=== PATIENT | male | born 1960 | race African-American/Black ===

== ENCOUNTER 2017-12-22 11:30 | Inpatient (IN) | payer MEDICAID ==
--- NOTE | 2017-12-22 11:51 | EDPHY ---
H & P Stated Complaint: CP, CARLIN, leg pain ongoing since stents places last week - Medical/Surgical History Hx Asthma: No Hx Chronic Respiratory Disease: No Hx Diabetes: No Hx Cardiac Disease: No Hx Renal Disease: No Hx Cirrhosis: No Hx Alcoholism: No Hx HIV/AIDS: No Hx Splenectomy or Spleen Trauma: No Other PMH: HTN. Tobacco. ETOH. Homeless. stents - Social History Smoking Status: Current every day smoker Time Seen by Provider: 12/22/17 11:38 HPI/ROS: CHIEF COMPLAINT: Chest pain HISTORY OF PRESENT ILLNESS: [57-year-old homeless male currently living at the correction was admitted to [facility] on December 14 for complaints of chest pain with subsequent 80% stenosis of RCA and LAD post stenting, returns to the ER from the correction the ambulance complaining of return of chest pain for the past 2 days. States that he has otherwise been feeling well post discharge however the past 2 days he is only able to ambulate 3-5 minutes before stopping for pain including on flat surfaces. No back pain. No syncope or near syncope. No nausea. PRIMARY CARE PROVIDER: REVIEW OF SYSTEMS: A ten point review of systems was performed and is negative with the exception of the items mentioned in the HPI PAST MEDICAL & SURGICAL HISTORY: Recent cardiac stenting. SOCIAL HISTORY: Intermittent cigarette use. Homeless living at the correction PHYSICAL EXAM (Prior to examination, patient consented to physical exam, hands were washed and my usual and customary physical exam procedures followed) 1) GENERAL: [Well-developed, well-nourished, alert and oriented. Appears nontoxic answering questions per 2) HEAD: Normocephalic, atraumatic 3) HEENT: Pupils equal, round, reactive to light bilaterally. Sclera anicteric. 4) NECK: Full range of motion, no meningeal signs. 5) LUNGS: Clear auscultation bilaterally, no wheezes, no rhonchi, no retractions. 6) HEART: Regular rate and rhythm, no murmur, no heave, no gallop. 7) ABDOMEN: No guarding, no rebound, no focal tenderness, negative McBurney's, negative Reyes's, negative Rovsing's, negative peritoneal sign, 8) MUSCULOSKELETAL: Inguinal region examined, no signs of infection, no tenderness, no signs of pseudoaneurysm. Moving all extremities, no focal areas of tenderness, no obvious trauma. No peripheral edema or discoloration. 9) BACK: No CVA tenderness, no midline vertebral tenderness, no fluctuance, no step-off, no obvious trauma, no visual or palpable abnormality. 10) SKIN: No rash, no petechiae. 11) Psychiatric: Patient is oriented X 3, there is no agitation. DIFFERENTIAL DIAGNOSIS: In no particular order, including but not limited to myocardial ischemia, pulmonary embolus, chest wall pain, pleural inflammation and pulmonary infectious causes. (Gilmer Groe) Constitutional: Initial Vital Signs Temperature (C) 36.7 C 12/22/17 11:30 Heart Rate 61 12/22/17 11:30 Respiratory Rate 17 12/22/17 11:30 Blood Pressure 113/73 12/22/17 11:30 O2 Sat (%) 100 12/22/17 11:30 O2 Delivery Mode Room Air Allergies/Adverse Reactions: No Known Allergies Allergy (Verified 12/22/17 11:36) Home Medications: Medication Instructions Recorded Aspirin EC [Aspirin EC 325 mg (*)] 325 mg PO DAILY #30 tab 12/16/17 Atorvastatin Calcium [Lipitor 40 80 mg PO DAILY #60 tab 12/16/17 mg (*)] Carvedilol [Coreg (*)] 3.125 mg PO BIDMEAL #60 tab 12/16/17 Clopidogrel Bisulfate [Plavix (*)] 75 mg PO DAILY #30 tab 12/16/17 Lisinopril [Zestril 2.5 mg (*)] 2.5 mg PO DAILY #30 tab 12/16/17 Medical Decision Making - Diagnostics EKG Interpretation: EKG: Complete interpretation has been separately recorded in the [facility] archive. Summary impression: Sinus rhythm, rate 59 (Wallace Limon) Imaging Results: Imaging Impressions Chest X-Ray 12/22/17 11:49 Impression: 1. Suggest mild chronic bronchitis/airways disease. 2. Atherosclerotic thoracic aorta. 3. No definite pneumonia, pleural effusion, or pneumothorax. Images reviewed myself (Gilmer Gore) ED Course/Re-evaluation: Old medical records have been reviewed on this patient case discussed with Dr. Limon in the ER. Patient has elevated troponin of 0.21, no current complaints of chest pain but does note intermittent chest pain for the past 24 hr after and asymptomatic. Post discharge from the hospital. Will consult with Cardiology. 12:45 p.m.: Consultation with hospitalist CESIA Bartlett, recommended readmission to hospitalist service and Cardiology will consult. (Gilmer Gore) Other Provider: PHYSICIAN DOCUMENTATION: The patient was evaluated and managed by the Physician Forest Science Professor. My co- signature indicates that I have reviewed this chart and I agree with the findings and plan of care as documented. I am the secondary supervising physician. (Wallace Limon) - Data Points Laboratory Results: Laboratory Results 12/22/17 11:48 12/22/17 12:00 12/22/17 12/22/17 12/22/17 12:35 12:00 11:59 WBC RBC Hgb Hct MCV MCH MCHC RDW Plt Count MPV Neut % (Auto) Lymph % (Auto) [place] % (Auto) Eos % (Auto) Baso % (Auto) Nucleat RBC Rel Count Absolute Neuts (auto) Absolute Lymphs (auto) Absolute Monos (auto) Absolute Eos (auto) Absolute Basos (auto) Absolute Nucleated RBC Immature Gran % Immature Gran # PT 12.9 SEC SEC (12.0-15.0) INR 0.95 (0.83-1.16) APTT 21.3 SEC L SEC (23.0-38.0) Sodium 137 mEq/L mEq/L (135-145) Potassium 4.5 mEq/L mEq/L (3.3-5.0) Chloride 110 mEq/L mEq/L (97-110) Carbon Dioxide 20 mEq/l L mEq/l (22-31) Anion Gap 7 mEq/L L mEq/L (8-16) BUN 20 mg/dL mg/dL (7-23) Creatinine 0.8 mg/dL mg/dL (0.7-1.3) Estimated GFR > 60 Glucose 96 mg/dL mg/dL (70-100) Calcium 9.3 mg/dL mg/dL (8.5-10.4) POC Troponin I 0.21 ng/mL H ng/mL (0.00-0.08) 12/22/17 12/22/17 12/22/17 11:48 11:48 11:48 WBC 6.54 10^3/uL 10^3/uL (3.80-9.50) RBC 3.91 10^6/uL L 10^6/uL (4.40-6.38) Hgb 11.7 g/dL L g/dL (13.7-17.5) Hct 35.9 % L % (40.0-51.0) MCV 91.8 fL fL (81.5-99.8) MCH 29.9 pg pg (27.9-34.1) MCHC 32.6 g/dL g/dL (32.4-36.7) RDW 15.8 % H % (11.5-15.2) Plt Count 290 10^3/uL 10^3/uL (150-400) MPV 10.2 fL fL (8.7-11.7) Neut % (Auto) 75.4 % H % (39.3-74.2) Lymph % (Auto) 14.7 % L % (15.0-45.0) [place] % (Auto) 7.6 % % (4.5-13.0) Eos % (Auto) 2.0 % % (0.6-7.6) Baso % (Auto) 0.0 % L % (0.3-1.7) Nucleat RBC Rel Count 0.0 % % (0.0-0.2) Absolute Neuts (auto) 4.93 10^3/uL 10^3/uL (1.70-6.50) Absolute Lymphs (auto) 0.96 10^3/uL L 10^3/uL (1.00-3.00) Absolute Monos (auto) 0.50 10^3/uL 10^3/uL (0.30-0.80) Absolute Eos (auto) 0.13 10^3/uL 10^3/uL (0.03-0.40) Absolute Basos (auto) 0.00 10^3/uL L 10^3/uL (0.02-0.10) Absolute Nucleated RBC 0.00 10^3/uL 10^3/uL (0-0.01) Immature Gran % 0.3 % % (0.0-1.1) Immature Gran # 0.02 10^3/uL 10^3/uL (0.00-0.10) PT REJ INR REJ APTT REJ Sodium REJ Potassium REJ Chloride REJ Carbon Dioxide REJ Anion Gap REJ BUN REJ Creatinine REJ Estimated GFR REJ Glucose REJ Calcium REJ POC Troponin I Point of Care Test Results: Chemistry 12/22/17 11:59 POC Troponin I 0.21 ng/mL H ng/mL (0.00-0.08) Departure - Departure Disposition: [facility] Inpatient Acute Clinical Impression: Chest pain, Elevated troponin I level Condition: Fair
--- NOTE | 2017-12-22 11:57 | CPEKG ---
Heart Rate: 58 RR Interval: 1034 P-R Interval: 152 QRSD Interval: 98 QT Interval: 436 QTC Interval: 429 P [place]: 0 QRS [place]: 45 T Wave [place]: 81 EKG Severity - ABNORMAL ECG - EKG Impression: SINUS RHYTHM EKG Impression: PROBABLE LEFT VENTRICULAR HYPERTROPHY EKG Impression: ANTERIOR Q WAVES, POSSIBLY DUE TO LVH Electronically Signed By: Wallace Limon 22-Dec-2017 12:49:22
[2017-12-22 12:06] LABS: PLATELET COUNT 290 10^3/uL (150-400)
[2017-12-22 12:49] LABS: INR 0.95 (0.83-1.16); PROTIME(PATIENT) 12.9 SEC (12.0-15.0)
[2017-12-22] MEDS ORDERED: ONDANSETRON DISINTEGRATING 4 MG TAB PO PRN (14:30)
[2017-12-22] MEDS ORDERED: ACETAMINOPHEN 325 MG TAB PO PRN (14:30)
[2017-12-22] MEDS ORDERED: oxyCODONE IR 5 MG TAB PO PRN (14:30)
[2017-12-22] MEDS ORDERED: ONDANSETRON 4 MG/2 ML VIAL IVP PRN (14:30)
[2017-12-22] MEDS ORDERED: NICOTINE POLACRILEX 2 MG GUM B PRN (14:53)
--- NOTE | 2017-12-22 15:20 | GHP ---
[f rep st] HISTORY AND PHYSICAL DATE OF ADMISSION: 12/22/2017 CHIEF COMPLAINT: Shortness of breath. HISTORY OF PRESENT ILLNESS: This is a 57 year-old man who had a recent myocardial infarction with stents placed in his LAD, as well as RCA. At that time, his ejection fraction was noted to be 40% to 45%. He was discharged 6 days prior to his presentation today. He states compliance with his medication and seems to know the number and frequency of the medications that he is taking , although he does not know them by name. He has been homeless and staying at the nursing home. He has had significant dyspnea on exertion since then. Prior to having his OK, he was able to walk 5 miles without a problem. Now he needs to stop after about 5 or 10 minutes of walking. He stops because he gets so short of breath. He is having occasional chest pain. He is unable to further describe the quality of this. This does not seem to be exertional, it does not last very long. He has been continuing to smoke. He notes no lower extremity edema. PAST MEDICAL/SURGICAL HISTORY: 1. Coronary artery disease, status post PCI to the LAD and the RCA in the last week. 2. Hyperlipidemia. 3. Ongoing tobacco use. 4. Hypertension. 5. Homelessness. MEDICATIONS: Please see medication reconciliation. ALLERGIES: No known drug allergies. SOCIAL HISTORY: He is homeless. He has lived in [place] about a month. Prior to that, he lived in [place], [place]. He drinks about once a week. FAMILY HISTORY: No coronary artery disease. REVIEW OF SYSTEMS: A 10-point review of systems is conducted and is negative except per HPI. PHYSICAL EXAM: VITAL SIGNS: Blood pressure 130/67, heart rate 58, respiration rate 12, saturating 99% on room air, temperature is 37.2. GENERAL: Mr. Monge is a pleasant man who is resting comfortably, in no acute distress. HEENT: Normocephalic, atraumatic. CARDIOVASCULAR: Borderline bradycardic. There are no murmurs, rubs, or gallops. PULMONARY: Lungs clear to auscultation bilaterally. ABDOMEN: Soft, nontender, nondistended. SKIN: No rash. : No Calderón. NEUROLOGIC: Alert and oriented x3. He is moving all extremities. PSYCHIATRIC: Normal mood and affect. LABS: Hemoglobin is 11.7. INR 0.9. Bicarb is 20. Troponin 0.21. DATA: 1. Discussed this with Nicole Bartlett PA-C. Cardiology will consult. 2. I personally viewed and interpreted his chest x-ray. This shows mild hyperexpansion with thoracic aortic calcification. 3. I personally viewed and interpreted his EKGs. Previous EKG showed somewhat ischemic-looking T-waves in V1 through V4. Current EKG shows biphasic T-waves in the same leads. IMPRESSION AND PLAN: 1. Ongoing dyspnea on exertion/chest pain in a patient who just recently had a percutaneous coronary intervention: Echocardiogram has been performed, read is pending. Cardiology will consult. He has been taking appropriate cardiac medications. We will make him n.p.o. 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 2. Cardiomyopathy, ischemic: Repeat echocardiogram is pending. He is on Coreg and lisinopril. He is euvolemic. 3. Tobacco use: Cessation strongly encouraged. I will give him Nicorette gum while he is here. /[id number]/MODL MTDD
--- NOTE | 2017-12-22 15:37 | ECHO ---
[email or web address] [address] [address] Main: [phone] Fax: Transthoracic Echocardiogram Name: MATT DYER MR#: [id number] Study Date: 12/22/2017 Study Time: 02:22 PM Date of : 1960 Age: 57 year(s) Height: 185.4 cm (73 in.) Weight: 81.65 kg (180 lb.) BSA: 2.06 m2 Gender: Male Examination: Limited Echo Indication: Chest Pain, r/o wma Image Quality: Adequate Contrast: Requested by: Nicole Bartlett BP: 130 mmHg/67 mmHg Heart Rate: Rhythm: Indication: Chest Pain, r/o wma Procedure Staff Forest Technician: Swati Rouse [facility] Reading Physician: Chip Crawford MD Requesting Provider: Conclusions: Dilated left ventricle. The ejection fraction is visually estimated to be 25 %. Reduced LV function. Global hypokinesis. No previous Measurements: Chambers Valvular Assessment AV/MV Valvular Assessment TV/PV Normal Normal Normal Name Value Range Name Value Range Name Value Range LVEF (BP): 30 % (>=55 %) Visual EF: 25 % Continued Measurements: Findings: Left Ventricle: Dilated left ventricle. The ejection fraction is visually estimated to be 25 %. Reduced LV function. Global hypokinesis. (No Signature Object) Patient: MATT DYER Study Date: 12/22/2017 Page 1 of 1 02:22 PM [id number]
--- NOTE | 2017-12-22 16:40 | GCON ---
[f rep st] CONSULTATION CARDIOLOGY CONSULTATION HISTORY OF PRESENT ILLNESS: The patient is a 57-year-old male with a past medical history that was l imited to only hypertension who presented last week with an acute coronary syndrome. He was found to have severe obstructive lesions in his LAD and RCA that were treated with PTCA and stenting. The pr ocedural note mentions that his LAD lesion was heavily calcified and was very difficult to cross. In the procedure, he had a very difficult PCI of his mid LAD complicated by a diagonal closure. He was admitted 12/14, and discharged on 12/16. He reports that he has not had chest pains post-PCI. He h as not missed any of his medications, including dual anti-platelet therapy, carvedilol, lisinopril, a torvastatin. Since his discharge, he has been having very significant dyspnea on exertion. He will have to stop every few feet to catch his breath. He denies any peripheral edema, palpitation, PND, o rthopnea, or presyncope, syncope. He also describes a chest pain, which is milder than his previous, but he still reports it of a 6 to 8/10. This is associated with exertion. PAST MEDICAL HISTORY: 1. CAD, status post PTCA and stenting to LAD and RCA. 2. Dyslipidemia. 3. Ongoing tobacco abuse. 4. Hypertension. 5. Homelessness. MEDICATIONS: Please see medication reconciliation. ALLERGIES: No known drug allergies. SOCIAL HISTORY: He recently moved here from [place]. He continued to smoke and he drinks about once a week. He is currently homeless. FAMILY HISTORY: Positive for mother with CAD at an age younger than 65. REVIEW OF SYSTEMS: As per HPI. A complete 10-point review of systems was obtained and is negative, except for what is dictated in HPI. PHYSICAL EXAMINATION: VITAL SIGNS: BP of 130/67, heart rate 58, respirations 12, O2 saturation 99% on room air, temp of 99 degrees Fahrenheit. GENERAL: He is a very pleasant male in no apparent dist ress. HEENT: Normocephalic, atraumatic. Eyes are without scleral icterus. Mucous membranes moist. HEART: Regular rate and rhythm. LUNGS: Mildly diminished in the bases. ABDOMEN: Soft with norm oactive bowel sounds. SKIN: Warm and dry. NEURO: No focal deficits detected. PSYCHIATRIC: Nayeli l mood and affect for given situation. : With no Calderón present in urethra. DIAGNOSTIC DATA: Chest x-ray images reviewed. This shows a mild chronic bronchitis airway disease. No definite pleural effusion. There is atherosclerosis involving his thoracic aorta. 12/22/2017, echocardiogram reviewed shows EF is reduced at 25% with global hypokinesis. A 12-lead ECG personally interpreted demonstrates sinus rhythm with LVH and anterior Q-waves with T-w ave inversions and mild ST elevation, fairly similar to previous ECG. I discussed patient's care with Dr. Baldwin. Chart notes reviewed and summarized. IMPRESSION/PLAN: The patient is a 57-year-old male admitted with ongoing dyspnea and chest pain. He did have a complicated percutaneous intervention procedure. 1. Ongoing dyspnea and chest pain. We will plan to cycle his cardiac enzymes and consider repeat ca rdiac catheterization. 2. Ischemic cardiomyopathy. His symptoms of dyspnea are likely related to his ischemic cardiomyopat hy and he has functional class III symptoms currently. We will plan to try to optimize his medical m anagement in this admission. Currently, he appears euvolemic. 3. Hypertension. Blood pressures could be improved given his low ejection fraction on this current echo. 4. Ongoing tobacco abuse. Patient counseled on cessation. 5. More recommendations will follow further testing. /[id number]/MODL
[2017-12-22] MEDS: CARVEDILOL 3.125 MG TAB PO SCH (18:29)
[2017-12-23] MEDS: CARVEDILOL 3.125 MG TAB PO SCH (08:47)
[2017-12-23] MEDS: ATORVASTATIN CALCIUM 40 MG TAB PO SCH (09:21)
[2017-12-23] MEDS: LISINOPRIL 2.5 MG TAB PO SCH (09:21)
[2017-12-23] MEDS: CLOPIDOGREL BISULFATE 75 MG TAB PO SCH (09:21)
[2017-12-23] MEDS: ASPIRIN EC 325 MG TAB PO SCH (09:22)
--- NOTE | 2017-12-23 11:11 | PDCARPN ---
Cardiology Progress Note Chief Complaint: Dyspnea/ chest pain/recent ACS Assessment/Plan: Assessment: This is a 57 y/o male seen for consultation today for continued dyspnea and chest pains, with a history of uncontrolled hypertension, and ACS for which he underwent PCI last week with stenting of the LAD and RCA. During the procedure stenting of the LAD was difficult to cross due to calcifications, and was complicated with a diagonal closure. Stenting of the RCA was uncomplicated. Plan: #. Ongoing dyspnea and chest pains- Troponins low and not suggestive of repeat event NpBNP reassuringly low and no pulmonary edema or pleural effusions on CXR will try to uptitrate medical management will begin spironolactone 25 mg to optimize medical management #. CAD: cp improved and trops low (likely residually elevated from recent ACS) will defer repeat cath at this time #. Ischemic cardiomyopathy- symptoms of dyspnea likely related with NYHA FC III symptoms Will attempt to optimize medical therapy at this time with spironolactone 25mg will d/c carvedilol and switch to metoprolol given his shortness of breath and headaches. Currently euvolemic #. Hypertension- BP today is 124/71. Continue lisinopril 2.5 mg and metoprolol 25mg #. Homelessness: will ask case management to help with resources #. Dispo: keep inpt for further med titration/optimization 12/23/17 12:11 Subjective: Patient is a 57 y/o male being seen for consultation today for shortness of breath and dyspnea. He has a history of untreated hypertension, as well as an episode of acute coronary syndrome last week for which he underwent PCI and was found to have severe obstruction in his LAD and RCA which required PTCA and stenting. LAD was heavily calcified and difficult to cross and was complicated by a diagonal closure. RCA stenting was uncomplicated. He was admitted on 12/14 and discharged on 12/16. He reports taking all of his medications since discharge to include carvedilol, lisinopril, atorvastatin, aspirin, and Plavix.Today he continues to complain of shortness of breath and dyspnea that is worsened with any physical activity to include walking only a few steps. He denies any PND, orthopnea, dizziness/lightheadedness, palpitations, or lower extremity edema. He does report some non-specific chest pains which he states are milder than his previous chest pains last week, as well as headaches over the past several days. He has no additional questions or concerns today. Reviewed/Discussed With: hospitalist (Dr. Fernando) Objective: Vital Signs (8 Hrs) Temp Pulse Resp BP Pulse Ox 12/23/17 07:51 97.4 F 65 16 124/71 H 93 12/23/17 05:26 97.8 F 57 L 12 123/75 H 99 Intake/Output (24 Hrs) 12/22/17 12/23/17 12/24/17 05:59 05:59 05:59 Intake Total 350 Balance 350 Intake: Oral (ml) 350 Other: Weight 82 kg Intake Quantity Yes Sufficient Result Diagrams: 12/22/17 11:48 12/23/17 03:50 Cardiac Labs: Cardiac Lab Results (72 Hrs) 12/23/17 12/22/17 12/22/17 03:50 18:25 15:30 Troponin I 0.167 H 0.189 H 0.218 H Laboratory Tests 12/22/17 15:30 NT-Pro-B Natriuret Pep 277 H EKG: personally interpreted SR with LVH and Twi infusion ant lat with biphasic Tw Telemetry: Personally reviewed. Sinus rhythm with some artifacts. Echocardiogram: Echocardiogram performed on 12/22/17 showed: EF visually estimated at 25%, dilated left ventricle, reduced LV function, global hypokinesis. - Physical Exam Constitutional: WDWN, no apparent distress Eyes: anicteric sclera Ears, Nose, Mouth, Throat: moist mucous membranes Cardiovascular: regular rate and rhythm, no murmurs, no rubs, no gallops, pulses symmetric bilat Peripheral Pulses: 2+: dorsalis-pedis (R), dorsalis-pedis (L) Respiratory: clear to auscultate bilat, no crackles, no wheezes Gastrointestinal: normoactive bowel sounds, no tenderness Genitourinary: No gillis in urethra Skin: no rashes, no abrasions, warm Neurologic: AAOx3 Psychiatric: cooperative, interactive, following commands, not anxious ICD10 Worksheet Patient Problems: Problems Problem Status Onset Chest pain Acute Elevated troponin I level Acute ACS (acute coronary syndrome) Acute Abnormal EKG Acute
[2017-12-23] MEDS: SPIRONOLACTONE 25 MG TAB PO SCH (11:30)
[2017-12-23] MEDS: METOPROLOL SUCCINATE XR 25 MG TAB PO SCH (11:30)
--- NOTE | 2017-12-23 12:02 | ASMTCASEMG ---
Living Arrangements What is your living Answers: Alone arrangement? Who do you live with? Type Of Residence What kind of residence do Answers: Homeless you live in? Discharge Plan Comments Coordination Status Comments Notes: Pts case discussed in tx rounds. Pt is a 57 y/o man admitted for chest pain. Pt was recently here at [facility] for a similiar presentation. [place] [facility] Referral sent to [facility]. CM can reserve [place] [facility] [place] for pt once medically stable. CM to follow. Plan[place] [facility] [place] Date Signed: 12/23/2017 12:01 PM Electronically Signed By:OLIMPIA Busby
--- NOTE | 2017-12-23 12:15 | CPEKG ---
Heart Rate: 60 RR Interval: 1000 P-R Interval: 148 QRSD Interval: 92 QT Interval: 448 QTC Interval: 448 P [place]: -1 QRS [place]: 47 T Wave [place]: 79 EKG Severity - ABNORMAL ECG - EKG Impression: SINUS RHYTHM EKG Impression: PROBABLE LEFT VENTRICULAR HYPERTROPHY EKG Impression: ANTERIOR ST ABNORMALITIES,CONSIDER RECENT MO Electronically Signed By: Markel Tipton 23-Dec-2017 12:58:40
--- NOTE | 2017-12-23 16:55 | HOSPPROG ---
Hospitalist Progress Note Assessment/Plan: Chest pain in 57 yo male with recent PCI / stent - Trop trending down, likely elevated from recent ACS event. Cardiology consulted, no plans for repeat angiogram. CP free today. Ischemic cardiomyopathy - BNP normal. EF 25% with hypokinesis. Spironolactone added per cards. Coreg changed to Toprol. Will monitor another night with medication changes. Hypertension - controlled. Cont current regimen. Homelessness - CM involved Dispo - change to inpt for ongoing medical management of cardiomyopathy Subjective: Pt feels better. Denies CP or SOB today. Tolerating med changes thus far. Objective: Vital Signs Temp Pulse Resp BP Pulse Ox 36.6 C 60 16 119/59 L 99 12/23/17 11:56 12/23/17 11:56 12/23/17 11:56 12/23/17 11:56 12/23/17 11:56 Laboratory Results 12/23/17 03:50 12/22/17 12/23/17 12/24/17 05:59 05:59 05:59 Intake Total 350 480 Balance 350 480 PT 12.9 SEC (12.0-15.0) 12/22/17 12:35 INR 0.95 (0.83-1.16) 12/22/17 12:35 - Physical Exam Constitutional: no apparent distress Eyes: PERRL Ears, Nose, Mouth, Throat: moist mucous membranes Cardiovascular: regular rate and rhythym Respiratory: no respiratory distress Gastrointestinal: normoactive bowel sounds, soft, non-tender abdomen Skin: warm Musculoskeletal: full muscle strength Neurologic: AAOx3 Psychiatric: interacting appropriately ICD10 Worksheet Patient Problems: Problems Problem Status Onset Chest pain Acute Elevated troponin I level Acute ACS (acute coronary syndrome) Acute Abnormal EKG Acute
[2017-12-24 08:30] VITALS: BP 114/54
--- NOTE | 2017-12-24 08:31 | PDMN ---
Medical Necessity Medical necessity: Change to IP, as of 12/23/17, per MD; los >2 mn for ongoing management of ischemic cardiomyopathy; requiring further cardiac monitoring & med management; hx recent PCI/stent, HTN, homelessness
[2017-12-24] MEDS: ATORVASTATIN CALCIUM 40 MG TAB PO SCH (08:38)
[2017-12-24] MEDS: METOPROLOL SUCCINATE XR 25 MG TAB PO SCH (08:38)
[2017-12-24] MEDS: ASPIRIN EC 325 MG TAB PO SCH (08:38)
[2017-12-24] MEDS: LISINOPRIL 2.5 MG TAB PO SCH (08:38)
[2017-12-24] MEDS: CLOPIDOGREL BISULFATE 75 MG TAB PO SCH (08:38)
[2017-12-24] MEDS: SPIRONOLACTONE 25 MG TAB PO SCH (08:39)
--- NOTE | 2017-12-24 09:23 | ASMTLACE ---
LACE Length of stay for Answers: 1 day current admission Acuity / Level of Answers: Yes Care: Did the patient have an inpatient admission? Comorbidities - select Answers: Coronary Artery Disease all that apply Previous myocardial infarction Other Notes: HTN; HLD # of Emergency department Answers: 1-2 visits in the last 6 months Social determinants Answers: History of substance abuse (ETOH, street drugs, prescription drugs, etc.) Homelessness (street, fci) Score: 15 Date Signed: 12/24/2017 09:23 AM Electronically Signed By:OLIMPIA Busby
--- NOTE | 2017-12-24 09:35 | ASMTDCNOTE ---
Case Management Discharge Discharge Order Complete? Answers: Yes Patient to Obtain Answers: Independently Medications Transportation Arranged Answers: Bus Tokens EMTALA Complete Answers: No Case Management Transport Answers: No Form Complete Faxed Final Orders Answers: No Agency/Facility Transfer Answers: No Report Printed & Faxed to Receiving Agency Family Notified Answers: No Discharge Comments Notes: CM spoke to Dr. Fernando and Riky RN regarding d/c POC. Pt is being discharged today. CM made a reservation at the skilled nursing for pt. CM provided pt w/ a bus pass. No other needs at this time. CM available for changes. Plan: Independent Date Signed: 12/24/2017 09:35 AM Electronically Signed By:OLIMPIA Busby
--- NOTE | 2017-12-24 12:41 | PDCARPN ---
Cardiology Progress Note Chief Complaint: ICM/CHF/CAD Assessment/Plan: Assessment: This is a 57 y/o male seen for consultation today for continued dyspnea and chest pains, with a history of uncontrolled hypertension, and ACS for which he underwent PCI last week with stenting of the LAD and RCA. During the procedure, stenting of the LAD was difficult to cross due to calcifications, and was complicated with a diagonal closure. Stenting of the RCA was uncomplicated. Plan: #. Ongoing dyspnea and chest pains- Troponins low and not suggestive of repeat event NpBNP reassuringly low and no pulmonary edema or pleural effusions on CXR will continue present medical management continue spironolactone 25 mg to optimize medical management #. CAD: cp improved and trops low (likely residually elevated from recent ACS) will defer repeat cath at this time #. Ischemic cardiomyopathy- symptoms of dyspnea likely related with NYHA FC III symptoms Will attempt to optimize medical therapy at this time with spironolactone 25mg D/c'd carvedilol and switched to metoprolol given his shortness of breath and headaches. Currently euvolemic #. Hypertension- BP today is 124/71. Continue lisinopril 2.5 mg and metoprolol 25mg #. Homelessness: will ask case management to help with resources #. Dispo: ok to discharge from cardiac perspective. 12/24/17 12:39 Subjective: Less short of breath and no dyspnea. Reviewed/Discussed With: hospitalist (Dr. Fernando) Objective: Vital Signs (8 Hrs) Temp Pulse Resp BP Pulse Ox 12/24/17 08:29 98.6 F 64 15 114/54 L 99 Intake/Output (24 Hrs) 12/23/17 12/24/17 12/25/17 05:59 05:59 05:59 Intake Total 1000 Balance 1000 Intake: Oral (ml) 1000 Other: Number of Voids Toilet 3 Result Diagrams: 12/22/17 11:48 12/23/17 03:50 Telemetry: reviewed/ SR - Physical Exam Constitutional: no apparent distress Ears, Nose, Mouth, Throat: moist mucous membranes Cardiovascular: regular rate and rhythm Respiratory: clear to auscultate bilat Skin: no rashes, no abrasions Neurologic: AAOx3 Psychiatric: cooperative, interactive ICD10 Worksheet Patient Problems: Problems Problem Status Onset ACS (acute coronary syndrome) Acute Abnormal EKG Acute Chest pain Acute Elevated troponin I level Acute
--- NOTE | 2017-12-24 21:36 | GDS ---
[f rep st] DISCHARGE SUMMARY DISCHARGE DIAGNOSES: 1. Chest pain, resolved. 2. Ischemic cardiomyopathy, ejection fraction 25%. 3. Coronary artery disease with recent acute coronary syndrome, status post percutaneous coronary in tervention and stenting of the left anterior descending and right coronary artery 1 week prior to adm ission. 4. Hypertension. 5. Homelessness. CONSULTANTS: CESIA Hernandez, Cardiology. HISTORY: For details please see history and physical dated December 22, 2017. The patient is a 57-year- old male, who was recently hospitalized with acute coronary syndrome and underwent stents to his LAD and RCA, presents to the emergency department with chest pain and shortness of breath. His troponin was elevated at 0.21. This was down from 1.74 the week prior to admission during his acute coronary syndrome. His EKG on admission showed biphasic T-waves in his anterior leads. His troponin continue d to trend down during his hospitalization. He was started on spironolactone for his cardiomyopathy, though he was a relatively euvolemic during hospitalization. In addition, his Coreg was changed to Toprol-XL for a more convenient once daily dosing given his homelessness. It was thought his troponi ns were still on the downward trend from his recent acute coronary syndrome and were not likely sugge stive of a repeat event or in-stent stenosis. In addition he had a normal BNP and no evidence of pul monary edema. Cardiology service did not recommend repeat catheterization. On the day of discharge, he remains chest pain free. His vital signs are stable with a blood pressure of 114/54, heart rate 64, respiratory rate 15. He is 99% on room air. DISPOSITION: Patient is discharged to the [facility] [place] [facility] in [facility] condition. FOLLOWUP: ARIELA Hernandez, [facility] January 04 at 9:15 a.m., and he is advised he [facility] follow up there weekly. DISCHARGE MEDICATIONS: Please see [facility] completed outpatient medication list. New medications in clude Toprol-XL 25 mg p.o. daily, #30, no refills; spironolactone 25 mg p.o. daily, #30, no refills; nitroglycerin 0.4 mg sublingual q.6 hours p.r.n., #30, no refills. He will continue his aspirin 325 mg p.o. daily, Lipitor 80 mg p.o. daily, Plavix 75 mg p.o. daily, and lisinopril 2.5 mg p.o. daily. Coreg is discontinued in favor of Toprol-XL. He may be a candidate for long-acting nitrate therapy, which can be addressed at his outpatient cardiology followup appointment. /[id number]/MODL
== END 2017-12-24 11:20 | disposition home or self-care (01) | DRG 198 ==
LOC: EDUNIT# → F2W 13:45 → OBSVTOIN 12-23 17:03
PROVIDERS: ADMIT Student in an Organized Health Care Education/Training Program; ATTEND Student in an Organized Health Care Education/Training Program
DX: R07.9 Chest pain, unspecified (principal); R06.02 Shortness of breath; I25.5 Ischemic cardiomyopathy; I25.10 Atherosclerotic heart disease of native coronary artery without angina pectoris; E78.5 Hyperlipidemia, unspecified; I10 Essential (primary) hypertension; Z95.5 Presence of coronary angioplasty implant and graft; Z59.0 Homelessness; F17.210 Nicotine dependence, cigarettes, uncomplicated
CPT/HCPCS: 84484-PO; G0378

== ENCOUNTER 2018-02-08 05:29 | Emergency (ER) | payer MEDICAID ==
--- NOTE | 2018-02-08 05:38 | EDPHY ---
H & P Time Seen by Provider: 02/08/18 05:38 HPI/ROS: Chief Complaint: Chest pain HPI: 57-year-old male with a history of coronary artery disease. Patient was originally seen here in November and had 4 stents placed. He is return twice since that time with chest pain and had negative evaluations both those times. Patient is currently homeless and staying at the homeless longterm. He says that he woke up yesterday evening at about 8 o'clock when he had fallen asleep in a hotel. Patient has had substernal chest pain about 8/10 at that time. It is has been constant for the last 9 hr. There are no aggravating or alleviating factors. He has been up walking around. He was unable to get back into the longterm because he admits curfew. He admits to smoking. He did have some alcohol. Denies any other drug use. Last used methamphetamine about 3 weeks ago. No fevers or chills. No cough. Patient states the pain feels similar to his prior episodes. EMS gave him aspirin and nitroglycerin without any relief. ROS: 10 systems were reviewed and were negative except those elements noted in the HPI. PMH: Coronary artery disease status post stenting Social History: Positive smoking, occasional alcohol, occasional marijuana and methamphetamine use Family History: Mother had a history of coronary artery disease Physical Exam: Gen: Awake, Alert, No Distress HEENT: Nose: no rhinorrhea Eyes: PERRLA, EOMI Mouth: Moist mucosa Neck: Supple, no JVD Chest: nontender, lungs clear to auscultation Heart: S1, S2 normal, no murmur Abd: Soft, non-tender, no guarding Back: no CVA tenderness, no midline tenderness Ext: no edema, non-tender Skin: no rash Neuro: CN II-XII intact, Sensation grossly intact, Strength 5/5 in bilateral upper and lower extremities - Medical/Surgical History Hx Asthma: No Hx Chronic Respiratory Disease: No Hx Diabetes: No Hx Cardiac Disease: Yes Hx Renal Disease: No Hx Cirrhosis: No Hx Alcoholism: No Hx HIV/AIDS: No Hx Splenectomy or Spleen Trauma: No Other PMH: HTN. Tobacco. ETOH. Homeless. stents. - Social History Smoking Status: Current every day smoker Constitutional: Initial Vital Signs Temperature (C) 37.0 C 02/08/18 05:37 Heart Rate 60 02/08/18 05:37 Respiratory Rate 18 02/08/18 05:37 Blood Pressure 175/100 H 02/08/18 05:37 O2 Sat (%) 97 02/08/18 05:37 O2 Delivery Mode Room Air Allergies/Adverse Reactions: No Known Allergies Allergy (Verified 01/03/18 10:31) Home Medications: Medication Instructions Recorded Aspirin EC [Aspirin EC 325 mg (*)] 325 mg PO DAILY #30 tab 12/16/17 Atorvastatin Calcium [Lipitor 40 80 mg PO DAILY #60 tab 12/16/17 mg (*)] Clopidogrel Bisulfate [Plavix (*)] 75 mg PO DAILY #30 tab 12/16/17 Lisinopril [Zestril 2.5 mg (*)] 2.5 mg PO DAILY #30 tab 12/16/17 Metoprolol Succinate Xr [Toprol Xl 25 mg PO DAILY #30 tab 12/24/17 25 mg (*)] Nitroglycerin 0.4 mg SL Q6H PRN #30 tab.subl 12/24/17 Spironolactone [Aldactone 25 MG 25 mg PO DAILY #30 tab 12/24/17 (*)] Carvedilol [Coreg (*)] 3.125 mg PO BIDMEAL 01/03/18 Medical Decision Making - Diagnostics EKG Interpretation: ECG time 5:34 a.m. Sinus rhythm with a rate of 57. There is LVH with early repolarization pattern. ECG is completely unchanged compared to January 03, 2018. ED Course/Re-evaluation: 57-year-old male presenting with chest pain which has been going on for 9 hr. Troponin is negative. ECG is unchanged from prior. He has presented with similar several times in the past month. Every evaluations been negative. His pain is been constant. Is not exertional. I do not see any differences in his prior presentations to now and given 9 hr of pain I would expect to see least changes troponin her ECG if this or truly acute coronary syndrome. Plan will be to discharge him with follow up with his interceptor operator. - Data Points Laboratory Results: 02/08/18 05:38 POC Troponin I 0.01 ng/mL ng/mL (0.00-0.08) Point of Care Test Results: Chemistry 02/08/18 05:38 POC Troponin I 0.01 ng/mL ng/mL (0.00-0.08) Departure - Departure Disposition: Home, Routine, Self-Care Clinical Impression: Chest pain Condition: Good Instructions: Chest Pain (ED) Additional Instructions: Please continue taking her prescribed medications. Follow up with interceptor operator in 1-2 days for further evaluation. Return to the emergency department for worsening chest pain, shortness of breath , pain with exertion, lightheadedness, fainting, or any other concerns. Referrals: NONE *PRIMARY CARE P,. [Primary Care Provider] - As per Instructions
--- NOTE | 2018-02-08 07:03 | CPEKG ---
Test Reason : OPEN Blood Pressure : / mmHG Vent. Rate : 057 BPM Atrial Rate : 057 BPM P-R Int : 153 ms QRS Dur : 092 ms QT Int : 458 ms P-R-T Axes : -14 026 057 degrees QTc Int : 446 ms Sinus rhythm Left ventricular hypertrophy ST elevation, consider anterior injury Confirmed by Matheus Gamble ([id number]) on 02/08/2018 7:02:52 AM Referred By: Confirmed By:Matheus Gamble
[2018-02-08 07:04] VITALS: BP 154/94
== END 2018-02-08 07:04 | disposition home or self-care (01) ==
LOC: EDUNIT# → EEVIPCON 05:29
DX: R07.9 Chest pain, unspecified (principal); F17.200 Nicotine dependence, unspecified, uncomplicated; Z59.0 Homelessness; Z95.5 Presence of coronary angioplasty implant and graft
CPT/HCPCS: 84484-PO